=== PATIENT | female | born 1965 | race Caucasian/White ===

== ENCOUNTER 2016-07-29 17:12 | Emergency (ER) | payer SELFPAY ==
[~2016-07-29] VITALS: Ht 162.6 cm; Wt 72.6 kg
[2016-07-29 18:08] LABS: KETONES,URINE Negative (NEGATIVE); LEUKOCYTE ESTERASE ,URINE Negative (NEGATIVE); PH,URINE 6.5 (5.0-8.0)
[2016-07-29] MEDS ORDERED: ONDANSETRON HCL/PF 4 MG/2 ML VIAL ONE (18:24)
[2016-07-29] MEDS ORDERED: MORPHINE SULFATE INJ 4 MG/ML DISP.SYRIN ONE ×2 (18:24→19:18)
[2016-07-29] MEDS ORDERED: ACETAMINOPHEN ES 500 MG TABLET ONE (18:24)
[2016-07-29] MEDS ORDERED: IV NS 0.9% 1,000 ML ONE (18:25)
[2016-07-29] MEDS ORDERED: IV SET PRIMARY 1 EA INFUS.SET MC ONE (18:25)
[2016-07-29] MEDS ORDERED: IV NS 0.9% 1,000 ML BAG IV ONE (18:30)
[2016-07-29] MEDS ORDERED: MORPHINE SULFATE INJ 2 MG/ML DISP.SYRIN IV ONE ×2 (18:30→19:30)
[2016-07-29] MEDS ORDERED: ONDANSETRON HCL/PF 4 MG/2 ML VIAL IVP ONE (18:30)
[2016-07-29] MEDS ORDERED: ACETAMINOPHEN ES 500 MG TABLET PO ONE (18:30)
[2016-07-29 18:40] LABS: BASOPHILS # (AUTO) 0.1 /CMM (0.0-0.2); BASOPHILS % (AUTO) 1.2 % (0.0-2.0); DIFF TOTAL % 100 %; EOSINOPHILS # (AUTO) 0.1 /CMM (0.0-0.7); EOSINOPHILS % (AUTO) 1.5 % (0.0-6.0); HEMATOCRIT 36 % (33-45); LYMPHOCYTES # (AUTO) 1.5 /CMM (0.8-4.8); LYMPHOCYTES % (AUTO) 22.1 % (20.0-44.0); MEAN CORPUSCULAR HEMOGLOBIN 24 PG (26.0-33.0); MEAN CORPUSCULAR HGB CONC 31 g/dl (31.0-36.0); MEAN CORPUSCULAR VOLUME 78 fL (82-100); MONOCYTES # (AUTO) 0.2 /CMM (0.1-1.30); MONOCYTES % (AUTO) 3.5 % (2.0-12.0); NEUTROPHILS # (AUTO) 5.1 /CMM (1.8-8.9); NEUTROPHILS % (AUTO) 71.7 % (43.0-81.0); PLATELET COUNT (AUTO) 462 /CMM (150-450); RED BLOOD CELL COUNT(AUTO) 4.62 MIL/uL (4.0-5.2)
[2016-07-29 18:40] LABS: ADD UA MICROSCOPIC YES
[2016-07-29 18:43] LABS: RBC,URINE 0-2 /HPF (0-2)
[2016-07-29 18:44] LABS: ADD URINE CULTURE YES
[2016-07-29 18:47] LABS: CALCIUM, SERUM 9.3 mg/dL (8.5-10.1); CREATININE 0.7 mg/dL (0.6-1.3); POTASSIUM 4.3 mmol/L (3.5-5.1)
[2016-07-29 19:12] LABS: LACTIC ACID 1.1 mmol/L (0.4-2.0)
[2016-07-29] MEDS ORDERED: PHENAZOPYRIDINE HCL 200 MG TABLET ONE (19:18)
[2016-07-29] MEDS ORDERED: PHENAZOPYRIDINE HCL 200 MG TABLET PO ONE (19:30)
[2016-07-29 19:53] VITALS: BP 126/81
== END 2016-07-29 19:54 | disposition home or self-care (01) ==
LOC: ER 17:18
DX: N12 Tubulo-interstitial nephritis, not specified as acute or chronic (principal)
CPT/HCPCS: 36415; 80048; 81001; 83605; 84703; 85025; 87040 ×2; 87086; 96361; 96374; 96375; 96376; 99284; A4606; J2270 ×2; J2405; J7030; Z7610; 81000-TC